=== PATIENT | male | born 1985 | race Caucasian/White ===

== ENCOUNTER 2019-04-28 19:05 | Emergency (ER) | payer MEDICAID, OTHER ==
[~2019-04-28] VITALS: Ht 175.3 cm; Wt 79.0 kg
[~2019-04-28 19:05] MED LIST: OXYC-145 PO
[2019-04-28 19:17] VITALS: BP 113/77
== END 2019-04-28 20:19 | disposition left against medical advice (07) ==
LOC: ER 19:07
DX: S40.022A Contusion of left upper arm, initial encounter (principal); Z53.21 Procedure and treatment not carried out due to patient leaving prior to being seen by health care provider; Y04.0XXA Assault by unarmed brawl or fight, initial encounter; Y93.89 Activity, other specified; Y92.89 Other specified places as the place of occurrence of the external cause; Y99.9 Unspecified external cause status